=== PATIENT | female | born 1980 | race Caucasian/White ===

== ENCOUNTER → 2016-12-21 | Outpatient (CLI) | payer BC ==
[~2016-12-21] MED LIST: BUPR2TAB SL; IBUP200T64 PO
[2016-12-21 11:06] LABS: HEMATOCRIT 44.4 % (34.6-47.8); HEMOGLOBIN 15.5 g/dL (11.7-16.4); WHITE BLOOD COUNT 5.1 x10^3/uL (3.4-10)
== END | disposition home or self-care (01) ==
LOC: STAR 09:43
PROVIDERS: ATTEND Obstetrics & Gynecology
DX: Z01.818 Encounter for other preprocedural examination (principal); N83.201 Unspecified ovarian cyst, right side
CPT/HCPCS: 36415; 81003; 84703; 85025

== ENCOUNTER 2016-12-28 05:44 | Day surgery (SDC) | payer BC ==
[~2016-12-28] VITALS: Ht 174 cm; Wt 114.3 kg
[2016-12-28 06:18] VITALS: BP 132/82
[2016-12-28] MEDS ORDERED: LACTATED RINGERS 1,000 ML IV SCH (06:21)
[2016-12-28] MEDS ORDERED: LIDOCAINE 1%, 2ML SQ PRN (06:30)
[2016-12-28] MEDS ORDERED: BUPIVACAINE/PF-EPI 0.25% 1:200K ONE (06:59)
[2016-12-28 07:23] LABS: HCG UR OBC PASS
[2016-12-28] MEDS ORDERED: SILVER NITRATE STICK TP ONE (07:39)
[2016-12-28] MEDS ORDERED: FENTANYL PF 100 MCG/2ML ONE ×2 (07:42→10:11)
[2016-12-28] MEDS ORDERED: HYDROmorphone 1 MG/ML, 1ML ONE (07:42)
[2016-12-28] MEDS ORDERED: ONDANSETRON 2MG/ML, 2ML ONE (07:47)
[2016-12-28] MEDS ORDERED: CEFAZOLIN 1,000 MG ONE (07:47)
[2016-12-28] MEDS ORDERED: GLYCOPYRROLATE 0.2MG/1ML, 5ML ONE (07:47)
[2016-12-28] MEDS ORDERED: DEXAMETHASONE 4 MG/ML, 1ML ONE (07:47)
[2016-12-28] MEDS ORDERED: ROCURONIUM 10 MG/ML ONE (07:47)
[2016-12-28] MEDS ORDERED: KETOROLAC 30 MG/1 ML ONE (07:47)
[2016-12-28] MEDS ORDERED: PROPOFOL 10 MG/ML, 20ML ONE (07:47)
[2016-12-28] MEDS ORDERED: SUCCINYLCHOLINE 20 MG/ML, 10ML ONE (07:47)
[2016-12-28] MEDS ORDERED: NEOSTIGMINE 1 MG/ML, 10ML ONE (07:47)
[2016-12-28] MEDS ORDERED: METOCLOPRAMIDE 5 MG/ML, 2ML ONE (07:47)
[2016-12-28] MEDS ORDERED: LABETALOL 5MG/ML, 20ML IV PRN (08:30)
[2016-12-28] MEDS ORDERED: DIAZEPAM 5 MG/ML, 2ML IVPush PRN (08:30)
[2016-12-28] MEDS ORDERED: ONDANSETRON 2MG/ML, 2ML IVPush PRN (08:30)
[2016-12-28] MEDS ORDERED: FENTANYL PF 100 MCG/2ML IV PRN (08:30)
[2016-12-28] MEDS ORDERED: hydrALAzine 20 MG/ML, 1ML IV PRN (08:30)
[2016-12-28] MEDS ORDERED: PROMETHAZINE 25 MG/ML, 1ML IV PRN (08:30)
[2016-12-28] MEDS ORDERED: OXYcodone 5 MG/5 ML ORAL.SOL UDC PO PRN (08:30)
[2016-12-28] MEDS ORDERED: ACETAMINOPHEN 325 MG TABLET PO PRN (08:30)
[2016-12-28] MEDS ORDERED: HYDROmorphone 1 MG/ML, 1ML IV PRN (08:30)
[2016-12-28] MEDS ORDERED: MIDAZOLAM 1 MG/ML, 2ML IV PRN (08:30)
[2016-12-28] MEDS ORDERED: ACETAMINOPHEN 650 MG/20.3 ML UDC ONE (10:11)
[2016-12-28] MEDS ORDERED: ACETAMINOPHEN 325 MG TABLET ONE (10:12)
[2016-12-28] MEDS ORDERED: OXYcodone 5 MG/5 ML ORAL.SOL UDC ONE (10:12)
[2016-12-28] MEDS ORDERED: OXYcodone/APAP 5/325MG TABLET PO PRN (13:30)
== END 2016-12-28 13:50 ==
LOC: OUT 05:44
PROVIDERS: ATTEND Obstetrics & Gynecology
DX: N83.291 Other ovarian cyst, right side (principal); E66.01 Morbid (severe) obesity due to excess calories; Z68.43 Body mass index [BMI] 50.0-59.9, adult
CPT/HCPCS: 58662; 81025; 88305; 88341; 88342; 88360; J0330; J0690; J1100; J1170; J1885; J2405; J2704; J2710; J2765; J3010; J3490; G0461